=== PATIENT | female | born 1955 | race Caucasian/White ===

== ENCOUNTER 2021-09-29 13:02 | Emergency (ER) | payer OTHER ==
[~2021-09-29] VITALS: Ht 152.4 cm; Wt 49.1 kg
[2021-09-29 13:57] LABS: BASOPHILS # (AUTO) 0.1 X10'3 (0-0.2); BASOPHILS % (AUTO) 0.8 % (0-1); EOSINOPHILS # (AUTO) 0.1 X10'3 (0-0.9); EOSINOPHILS % (AUTO) 1.4 % (0-6); HEMATOCRIT 35.7 % (35.0-45.0); HEMOGLOBIN 11.9 g/dl (12.0-16.0); LYMPHOCYTES # (AUTO) 1.3 X10'3 (1.1-4.8); MEAN CORPUSCULAR HEMOGLOBIN 29.4 PG (27.0-31.0); MEAN CORPUSCULAR HGB CONC 33.3 g/dL (33.0-36.5); MEAN CORPUSCULAR VOLUME 88.5 FL (78-98); MEAN PLATELET VOLUME 7.9 FL (7.4-10.4); MONOCYTES # (AUTO) 0.5 X10'3 (0-0.9); MONOCYTES % (AUTO) 7.8 % (2-12); NEUTROPHILS # (AUTO) 4.9 X10'3 (1.8-7.7); PLATELET COUNT 236 X10'3 (140-440); RED BLOOD COUNT 4.03 X10'6 (4.20-5.60); RED CELL DISTRIBUTION WIDTH 14.4 % (11.5-14.5); WHITE BLOOD COUNT 6.9 X10'3 (4.5-11.0)
[2021-09-29 14:10] LABS: ALANINE AMINOTRANSFERASE 24 U/L (12-78); ALBUMIN 3.7 G/DL (3.4-5.0); ALBUMIN/GLOBULIN RATIO 1.1 (1.1-1.5); ALKALINE PHOSPHATASE 63 IU/L (46-116); ANION GAP 9 (8-16); ASPARTATE AMINO TRANSFERASE 17 U/L (10-37); BILIRUBIN,TOTAL 0.6 MG/DL (0.1-1.0); BLOOD UREA NITROGEN 20 MG/DL (7-18); BUN/CREATININE RATIO 31.3 (6.6-38.0); CALCIUM 8.8 MG/DL (8.5-10.1); CHLORIDE 104 MMOL/L (99-107); CREATININE 0.64 MG/DL (0.40-0.90); GLUCOSE 86 MG/DL (70-104); SODIUM 141 MMOL/L (135-145); TOTAL CARBON DIOXIDE 27.9 MMOL/L (24-32); eGFR > 90 ML/MIN
[2021-09-29 15:32] VITALS: BP 143/77
== END 2021-09-29 15:34 | disposition home or self-care (01) ==
LOC: ER 13:03
DX: R10.31 Right lower quadrant pain (principal); K21.9 Gastro-esophageal reflux disease without esophagitis; Z88.2 Allergy status to sulfonamides
CPT/HCPCS: 36415; 80053; 85025; 99283

== ENCOUNTER 2023-08-22 06:45 | Day surgery (SDC) | payer OTHER ==
[2023-08-18 14:51] LABS: BASOPHILS % (AUTO) 1.7 % (0-1); EOSINOPHILS # (AUTO) 0.1 X10'3 (0-0.9); EOSINOPHILS % (AUTO) 2.9 % (0-6); LYMPHOCYTES # (AUTO) 1.2 X10'3 (1.1-4.8); LYMPHOCYTES % (AUTO) 40.5 % (21-51); MEAN CORPUSCULAR HEMOGLOBIN 29.3 PG (27.0-31.0); MEAN CORPUSCULAR HGB CONC 32.9 g/dL (33.0-36.5); MEAN CORPUSCULAR VOLUME 89.1 FL (78-98); MEAN PLATELET VOLUME 7.7 FL (7.4-10.4); MONOCYTES # (AUTO) 0.3 X10'3 (0-0.9); MONOCYTES % (AUTO) 9.2 % (2-12); NEUTROPHILS # (AUTO) 1.3 X10'3 (1.8-7.7); NEUTROPHILS % (AUTO) 45.7 % (42-75); PRE OP HEMOGLOBIN 11.5 g/dL (12.0-16.0); PRE OP PLATELET COUNT 187 X10'3 (140-440); RED BLOOD COUNT 3.93 X10'6 (4.20-5.60); RED CELL DISTRIBUTION WIDTH 13.7 % (11.5-14.5)
[2023-08-18 14:57] LABS: PRE OP WHITE BLOOD COUNT 2.9 10'3 (4.8-10.8)
[2023-08-18 15:06] LABS: ALBUMIN 3.7 G/DL (3.4-5.0); ALBUMIN/GLOBULIN RATIO 1.2 (1.1-1.5); ALKALINE PHOSPHATASE 64 IU/L (46-116); BLOOD UREA NITROGEN 19 MG/DL (7-18); BUN/CREATININE RATIO 27.5 (10.0-20.0); CALCIUM 9.5 MG/DL (8.5-10.1); CHLORIDE 106 MMOL/L (99-107); CREATININE 0.69 MG/DL (0.40-0.90); PRE OP ALT 31 U/L (30-65); PRE OP ANION GAP 1 (8-16); PRE OP AST 25 U/L (10-37); PRE OP BILIRUB, TOTAL 0.5 MG/DL (0.0-1.0); PRE OP GLUCOSE 101 MG/DL (70-104); PRE OP POTASSIUM 3.9 MMOL/L (3.4-5.1); PRE OP SODIUM 138 MMOL/L (135-145); TOTAL CARBON DIOXIDE 31.1 MMOL/L (24-32); TOTAL PROTEIN 6.8 G/DL (6.4-8.2); eGFR 85 ML/MIN
[2023-08-18 15:21] LABS: BURR CELLS FEW; PLATELET ESTIMATE NORMAL; TOTAL CELLS COUNTED 100
[~2023-08-22] VITALS: Ht 152.4 cm; Wt 46.2 kg
[~2023-08-22 06:45] MED LIST: ATOR10TA70 PO; BETA1TAB19 PO; CELE100C99 PO; CHOL400T57 PO; CYAN100070 PO; DEXL60CA3; DEXT5TAB31; LOSA25TA41; MELA10TA2 PO; MIRA25TA; MULT-955 PO; OMEG-167 PO; OSC500T PO; POLY119P2 PO; TUMERIC; WHEA1TAB7; [UNRECOGNIZED DRUG - OTHER]; [UNRECOGNIZED DRUG - OTHER]; cefazolin 2gm/D5W 100mL 100 ML IV ONE; famotidine 20mg tablet PO ONE; ringers solution, lacted 1,000 ML IV SCH
[2023-08-22 07:00] VITALS: BP 131/67; PULSE 77; RESP 14; TEMP 97.9; O2SAT 77; O2SAT 97
[2023-08-22] MEDS ORDERED: BUPIVAcaine/PF 2.5mg/ml (0.25%) 10ml vial ONE (07:29)
[2023-08-22] MEDS ORDERED: ringers solution, lacted 1,000 ML IV SCH (08:55)
[2023-08-22] MEDS ORDERED: morphine 4 MG/ML inj SYRINge IV PRN (08:55)
[2023-08-22] MEDS ORDERED: labetalol 20mg/4ml (5mg/ml) syringe IV PRN (08:55)
[2023-08-22] MEDS ORDERED: morphine 2 MG/ML inj. syringe IV PRN (08:55)
[2023-08-22] MEDS ORDERED: ondansetron/PF 4mg/2ml inj IV PRN (08:55)
[2023-08-22] MEDS ORDERED: BUPIVAcaine/PF 2.5mg/ml (0.25%) 10ml vial IJ ONE (09:00)
[2023-08-22] MEDS ORDERED: midazolam 1 mg/ML 2ml injection ONE ×2 (09:08→09:23)
[2023-08-22] MEDS ORDERED: fentaNYL/PF 50MCG/1 ML 2ML syringe ONE (09:08)
[2023-08-22] MEDS ORDERED: LIDOcaine 0.5% (5mg/ml) 50ml vial ONE (09:08)
[2023-08-22 09:49] VITALS: BP 135/71; PULSE 86; RESP 16; O2SAT 98
--- NOTE | 2023-08-22 09:49 | NUR ---
Received from OR via [facility] TO RR 8, accompanied by Anesthesiologist KANE and report given by Anesthesiologist. PATIENT A&OX4, DENIES NEEDS, V/S WNL, NEUROVASCULAR CHECKS INTACT, PIV TO LEFT HAND 20G, SCD ON, ICE AND ELEVATION TO RIGHT WRIST CDI DRESSING.
[2023-08-22 10:00] VITALS: BP 142/75; PULSE 78; RESP 18; O2SAT 97
[2023-08-22 10:10] VITALS: BP 139/73; PULSE 81; RESP 12; O2SAT 99
[2023-08-22 10:20] VITALS: BP 133/74; PULSE 76; RESP 17; O2SAT 100
--- NOTE | 2023-08-22 10:39 | NUR ---
PT HAS MET D/C CRITERIA. IV D/C'D. VSS. DRESSING C/D/I. ICE INTACT. I HAVE REVIEWED D/C INSTRUCTIONS WITH PATIENT AND SHE HAS VERBALIZED UNDERSTANDING OF INSTRUCTIONS. ALL QUESTIONS, COMMENTS, AND CONCERNS WERE ANSWERED AT THIS TIME. RIGHT HAND DRESSING REMAINS CDI. PT WAS ABLE TO GET DRESSED WITH ASSISTANCE OF , BRIAN AND AMBULATED TO W/C WITH STANDBY ASSIST. PT WAS ABLE TO USE TOILET BEFORE GOING HOME. PT WAS WHEELED OUT TO PRIVATE VEHICLE AND TRANSFERRED INTO VEHICLE WITHOUT INCIDENT. PATIENT D/C HOME WITH ALL BELONGINGS.
== END 2023-08-22 10:39 | disposition home or self-care (01) ==
LOC: PAS 06:45
PROVIDERS: ATTEND Orthopaedic Surgery Hand Surgery
DX: M65.341 Trigger finger, right ring finger (principal); M72.0 Palmar fascial fibromatosis [Dupuytren]; I10 Essential (primary) hypertension; K21.9 Gastro-esophageal reflux disease without esophagitis; G43.909 Migraine, unspecified, not intractable, without status migrainosus; F90.9 Attention-deficit hyperactivity disorder, unspecified type; M19.042 Primary osteoarthritis, left hand; M19.041 Primary osteoarthritis, right hand; Z90.49 Acquired absence of other specified parts of digestive tract; Z98.890 Other specified postprocedural states; Z88.2 Allergy status to sulfonamides; Z88.5 Allergy status to narcotic agent; Z88.8 Allergy status to other drugs, medicaments and biological substances; Z79.899 Other long term (current) drug therapy; Z87.891 Personal history of nicotine dependence; Z72.89 Other problems related to lifestyle; Z86.73 Personal history of transient ischemic attack (TIA), and cerebral infarction without residual deficits
CPT/HCPCS: 26055; 26121; 80053; 82948; 85025; J0690; J2250; J3010; J3490; J7030; J7120; Z7506; Z7512; 85007; A4215

== ENCOUNTER 2023-11-21 06:44 | Day surgery (SDC) | payer OTHER ==
[2023-11-18 10:43] LABS: BASOPHILS # (AUTO) 0.1 X10'3 (0-0.2); BASOPHILS % (AUTO) 1.8 % (0-1); EOSINOPHILS # (AUTO) 0.1 X10'3 (0-0.9); EOSINOPHILS % (AUTO) 1.9 % (0-6); LYMPHOCYTES # (AUTO) 1.5 X10'3 (1.1-4.8); LYMPHOCYTES % (AUTO) 38.5 % (21-51); MEAN CORPUSCULAR HEMOGLOBIN 29.3 PG (27.0-31.0); MEAN CORPUSCULAR HGB CONC 32.8 g/dL (33.0-36.5); MEAN CORPUSCULAR VOLUME 89.5 FL (78-98); MEAN PLATELET VOLUME 8.2 FL (7.4-10.4); MONOCYTES # (AUTO) 0.3 X10'3 (0-0.9); MONOCYTES % (AUTO) 7.8 % (2-12); PRE OP HEMOGLOBIN 12.5 g/dL (12.0-16.0); PRE OP PLATELET COUNT 220 X10'3 (140-440); PRE OP WHITE BLOOD COUNT 3.9 10'3 (4.8-10.8); RED BLOOD COUNT 4.25 X10'6 (4.20-5.60); RED CELL DISTRIBUTION WIDTH 14.2 % (11.5-14.5)
[2023-11-18 10:48] LABS: ALBUMIN 3.9 G/DL (3.4-5.0); ALBUMIN/GLOBULIN RATIO 1.2 (1.1-1.5); ALKALINE PHOSPHATASE 77 IU/L (46-116); BLOOD UREA NITROGEN 32 MG/DL (7-18); BUN/CREATININE RATIO 55.2 (10.0-20.0); CALCIUM 9.3 MG/DL (8.5-10.1); CHLORIDE 106 MMOL/L (99-107); CREATININE 0.58 MG/DL (0.40-0.90); PRE OP ALT 24 U/L (30-65); PRE OP ANION GAP 7 (8-16); PRE OP AST 20 U/L (10-37); PRE OP BILIRUB, TOTAL 0.5 MG/DL (0.0-1.0); PRE OP GLUCOSE 101 MG/DL (70-104); PRE OP SODIUM 142 MMOL/L (135-145); TOTAL CARBON DIOXIDE 29.5 MMOL/L (24-32); TOTAL PROTEIN 7.2 G/DL (6.4-8.2); eGFR > 90 ML/MIN
[~2023-11-21] VITALS: Ht 152.4 cm; Wt 53.1 kg
[~2023-11-21 06:44] MED LIST changes: +BIOT5000 PO; +CELE-148 PO; -CELE100C99 PO; +CYAN250010 PO; -DEXT5TAB31; -LOSA25TA41; +LOSA25TA41 PO; +MAGN400C PO
[2023-11-21 07:00] VITALS: BP 132/65; PULSE 87; RESP 16; TEMP 97.9; O2SAT 97
[2023-11-21] MEDS ORDERED: LIDOcaine 2% (20mg/ml) 5ml vial ONE ×2 (09:03→14:21)
[2023-11-21] MEDS ORDERED: BUPIVAcaine/PF 2.5mg/ml (0.25%) 10ml vial ONE ×2 (09:04→14:21)
[2023-11-21] MEDS ORDERED: proCHLORperazine 10 MG/2 ml inj IV PRN (09:15)
[2023-11-21] MEDS ORDERED: labetalol 20mg/4ml (5mg/ml) syringe IV PRN (09:15)
[2023-11-21] MEDS ORDERED: morphine 2 MG/ML inj. syringe IV PRN (09:15)
[2023-11-21] MEDS ORDERED: acetaminophen 1,000mg/100ml IV 100 ML IV ONE (09:15)
[2023-11-21] MEDS ORDERED: morphine 4 MG/ML inj SYRINge IV PRN (09:15)
[2023-11-21] MEDS ORDERED: ringers solution, lacted 1,000 ML IV SCH (09:15)
[2023-11-21] MEDS ORDERED: hydrALAZINE 20mg/ml inj. IV PRN (09:15)
[2023-11-21] MEDS ORDERED: meperidine/PF 25mg/ml syringe IV PRN ×3 (09:15)
[2023-11-21] MEDS ORDERED: ondansetron/PF 4mg/2ml inj IV PRN (09:15)
[2023-11-21] MEDS ORDERED: LIDOcaine 2% (20mg/ml) 5ml vial SQ ONE (09:30)
[2023-11-21] MEDS ORDERED: fentaNYL/PF 50MCG/1 ML 2ML syringe ONE (09:39)
[2023-11-21] MEDS ORDERED: midazolam 1 mg/ML 2ml injection ONE (10:20)
[2023-11-21 10:21] VITALS: BP 126/71; PULSE 90; RESP 16; O2SAT 98
[2023-11-21 10:30] VITALS: BP 137/86; PULSE 89; RESP 13; O2SAT 98
[2023-11-21 10:40] VITALS: BP 133/80; PULSE 90; RESP 14; O2SAT 98
[2023-11-21 10:50] VITALS: BP 148/89; PULSE 87; RESP 17; O2SAT 100
== END 2023-11-21 11:11 | disposition home or self-care (01) ==
LOC: PAS 06:44
PROVIDERS: ATTEND Orthopaedic Surgery Hand Surgery
DX: M18.11 Unilateral primary osteoarthritis of first carpometacarpal joint, right hand (principal); I10 Essential (primary) hypertension; K21.9 Gastro-esophageal reflux disease without esophagitis; Z87.891 Personal history of nicotine dependence; Z86.73 Personal history of transient ischemic attack (TIA), and cerebral infarction without residual deficits; Z88.2 Allergy status to sulfonamides; Z88.8 Allergy status to other drugs, medicaments and biological substances; Z88.5 Allergy status to narcotic agent; Z98.890 Other specified postprocedural states; Z90.49 Acquired absence of other specified parts of digestive tract; Z72.89 Other problems related to lifestyle; Z79.899 Other long term (current) drug therapy
CPT/HCPCS: 25310; 25447; 36415; 80053; 82948; 85025; 93005; J0690; J2250; J3010; J3490; J7030; J7120; Z7506; Z7512; A4215; A4618; A7000